=== PATIENT | female | born 1980 | race Asian ===

== ENCOUNTER 2020-08-21 06:30 | Day surgery (SDC) | payer OTHER ==
[2020-08-19 11:35] LABS: COVID AG,FIA SOURCE NASOPHARYNGEAL
[~2020-08-21] VITALS: Ht 152.4 cm; Wt 69.1 kg
[~2020-08-21 06:30] MED LIST: MONT-35 PO; PRED10 PO; SODIUM CHLORIDE 0.9% 1,000 ML IV ONE; SODIUM CHLORIDE 0.9% 1,000 ML ONE; TRAM50TA4 PO; ZOLP-280 PO
[2020-08-21] MEDS ORDERED: LIDOCAINE 4% 50 ML SOLUTION TP ONE (06:31)
[2020-08-21] MEDS ORDERED: LIDOCAINE 2% 30 ML JELLY TP ONE (06:31)
[2020-08-21] MEDS ORDERED: ALBUTEROL SULFATE 2.5 MG/0.5 ML NEB SOLUTION NEB ONE (06:31)
[2020-08-21] MEDS ORDERED: BENZOCAINE 20% 50 MCG/SPRAY 57 GM TP ONE (06:31)
[2020-08-21] MEDS ORDERED: MIDAZOLAM HCL 2 MG/2 ML VIAL ONE (07:46)
[2020-08-21] MEDS ORDERED: FentaNYL CITRATE PF 100 MCG/2 ML VIAL ONE (07:46)
[2020-08-21 07:56] LABS: GLUCOMETER DEV NAME(LOC) SDS.; GLUCOSE,POINT OF CARE 163 MG/DL (70-110)
[2020-08-21] MEDS ORDERED: MethylPREDNISolone SOD SUCC 125 MG/2 ML VIAL ONE (08:57)
[2020-08-21] MEDS ORDERED: MethylPREDNISolone SOD SUCC 125 MG/2 ML VIAL IVP ONE (09:00)
[2020-08-21] MEDS ORDERED: OXYGEN THERAPY IH SCH (20:00)
== END 2020-08-21 10:45 | disposition home or self-care (01) ==
LOC: SURGERY 06:30
PROVIDERS: ATTEND Internal Medicine Critical Care Medicine
DX: J38.4 Edema of larynx (principal); B37.0 Candidal stomatitis
CPT/HCPCS: 31623; 31624; 71045; 82962; 87070; 87101; 87206; 87220; 87426; 88184; 88185; C9803; J2250; J2930; J3010; J7030; 87015; J7613; Z7610